=== PATIENT | female | born 2000 | race Caucasian/White ===

== ENCOUNTER 2023-10-11 01:34 | Emergency (ER) | payer MEDICAID ==
[2023-10-11 01:44] VITALS: BP 141/65; PULSE 68
== END 2023-10-11 02:37 | disposition home or self-care (01) ==
LOC: JP.ED 01:34
DX: K08.89 Other specified disorders of teeth and supporting structures (principal); J45.909 Unspecified asthma, uncomplicated
CPT/HCPCS: 99282

== ENCOUNTER 2025-02-13 12:42 | Emergency (ER) | payer MEDICAID ==
[2025-02-13 12:57] VITALS: PULSE 84
[2025-02-13 13:18] VITALS: BP 105/58
[2025-02-13 13:37] LABS: BASE EXCESS VENOUS 0.3 mm/L; BASOPHILS ABSOLUTE AUTO 0.05 K/uL (0.00-0.10); BASOPHILS PERCENT AUTO 0.4 % (0.1-1.3); BICARBONATE,VENOUS 24.9 mmol/L; CARBOXYHEMOGLOBIN 1.6 % (0.0-1.6); EOSINOPHILS ABSOLUTE AUTO 0.04 K/uL (0.00-0.40); EOSINOPHILS PERCENT AUTO 0.3 % (0.0-5.4); HEMATOCRIT 40.7 % (34.3-46.0); HEMOGLOBIN 13.4 g/dL (11.2-15.5); IMMATURE GRAN ABSOLUTE AUTO 0.05 K/uL (0.00-0.23); IMMATURE GRAN PERCENT AUTO 0.4 % (0.0-0.7); LYMPHOCYTES ABSOLUTE AUTO 0.68 K/uL (0.8-3.3); LYMPHOCYTES PERCENT AUTO 5.1 % (11.4-47.7); MEAN CORPUSCULAR HEMOGLOBIN 30.5 pg (31.6-35.5); MEAN CORPUSCULAR HGB CONC 32.9 g/dL (31.6-35.5); MEAN CORPUSCULAR VOLUME 92.7 fL (81.4-99.0); METHEMOGLOBIN 0.9 %; MONOCYTES ABSOLUTE AUTO 0.37 K/uL (0.20-0.90); MONOCYTES PERCENT AUTO 2.8 % (3.3-12.6); NEUTROPHILS ABSOLUTE AUTO 12.06 K/uL (1.0-7.6); O2 SATURATION VENOUS 41.6; OXYHEMOGLOBIN 40.6 %; PCO2 VENOUS 42.2 mm/Hg; PH,VENOUS 7.388 (7.350-7.450); PLATELET COUNT,PLT 160 K/uL (130-375); RED BLOOD CELL COUNT 4.39 M/uL (3.77-5.24); WHITE BLOOD CELL COUNT,WBC 13.3 K/uL (3.2-11.0)
[2025-02-13 13:40] LABS: PO2 VENOUS 27.1 mm/Hg
[2025-02-13 14:05] LABS: A/G RATIO 1.1 (1.2-2.2); ALANINE AMINOTRANSFERASE,ALT 19 U/L (12-78); ALBUMIN 4.1 g/dL (3.4-5.0); ALKALINE PHOSPHATASE 50 U/L (46-116); ASPARTATE AMNIOTRANSFERASE,AST 12 U/L (15-37); BILIRUBIN TOTAL 0.7 mg/dL (0.2-1.0); BLOOD UREA NITROGEN,BUN 13 mg/dL (7-18); CALCIUM 9.7 mg/dL (8.5-10.1); CARBON DIOXIDE,CO2 24 mmol/L (21-32); CHLORIDE,CL 103 mmol/L (100-108); CREATININE 0.6 mg/dL (0.6-1.0); EST CRCL DRUG DOSING (CG) 117.54 mL/min; ESTIMATED GFR 127 mL/min (>60); GLUCOSE RANDOM 83 mg/dL (74-106); POTASSIUM,K 3.5 mmol/L (3.6-5.2); PROTEIN TOTAL,TP 7.8 g/dL (6.4-8.2); SODIUM,NA 140 mmol/L (140-148)
[2025-02-13 14:14] LABS: ANION GAP 16.5 mmol/L (5.0-14.0)
[2025-02-13 14:21] LABS: C-REACTIVE PROTEIN <0.50 mg/dL (<0.50); TROPONIN I HIGH SENSITIVITY < 4.0 pg/mL (<=60.3)
== END 2025-02-13 14:58 | disposition home or self-care (01) ==
LOC: JP.ED 12:42
DX: R07.89 Other chest pain (principal); J45.909 Unspecified asthma, uncomplicated; Z79.899 Other long term (current) drug therapy
CPT/HCPCS: 36415; 71046; 71046-26; 80053; 82803; 84443; 84484; 85025; 85379; 86140; 93005; 99285